=== PATIENT | female | born 1975 | race Caucasian/White ===

== ENCOUNTER 2017-03-23 17:02 | Emergency (ER) | payer OTHER ==
[2017-03-23 17:08] VITALS: BP 110/73; PULSE 75; TEMP 98.1; BMI 26.6
--- NOTE | 2017-03-23 17:10 | PDOC ---
Rapid Medical Evaluation Time Seen by Provider: 03/23/17 17:03 Medical Evaluation: Vital Signs Temp Pulse Resp BP Pulse Ox 98.1 F 75 18 110/73 96 03/23/17 17:04 03/23/17 17:04 03/23/17 17:04 03/23/17 17:04 03/23/17 17:04 03/23/17 17:07 I have performed a brief in-person evaluation of this patient. o The patient presents with a chief complaint of: Weakness, withdrawal from Methadone o Pertinent physical exam findings: Nervous, nauseas, Diaphoretic. Denies CP or SOB. o I have ordered the following:CBC, CMP, EKG, Urine tox, urinalysis, urine culture, urine . o The patient will proceed to the ED for further evaluation.
[2017-03-23 17:33] LABS: BASOPHIL 0.5 % (0-2.0); EOSINOPHIL 0.4 % (0-4.5); MCH 29.6 pg (25.7-33.7); MCHC 33.5 g/dl (32.0-36.0); MEAN CELL VOLUME 88.5 fl (80-96); MEAN PLT VOLUME 7.6 fl (7.5-11.1); NEUTROPHILS 73.5 % (42.8-82.8); PLATELET COUNT 333 K/MM3 (134-434); RDW 12.4 % (11.6-15.6); WHITE BLOOD COUNT 13.1 K/mm3 (4.0-10.0)
[2017-03-23 17:40] LABS: URINE APPEARANCE CLEAR; URINE BILIRUBIN NEGATIVE (NEGATIVE); URINE BLOOD NEGATIVE (NEGATIVE); URINE COLOR YELLOW; URINE GLUCOSE (UA) NEGATIVE (NEGATIVE); URINE KETONE TRACE (NEGATIVE); URINE LEUK ESTERASE NEGATIVE (NEGATIVE); URINE NITRITE NEGATIVE (NEGATIVE); URINE PROTEIN NEGATIVE (NEGATIVE); URINE UROBILINOGEN NEGATIVE E.U./dl (0.2-1.0)
[2017-03-23 17:58] LABS: URINE MARIJUANA THC NEGATIVE ng/ml (CUTOFF=50)
[2017-03-23] MEDS ORDERED: ONDANSETRON *ODT* 4 MG TABLET ONE (18:05)
[2017-03-23 18:07] LABS: ALBUMIN 4.4 g/dl (3.4-5.0); ALK PHOS 142 U/L (45-117); ANION GAP 11 (8-16); BILIRUBIN,TOTAL 0.7 mg/dL (0.2-1.0); CALCIUM 9.7 mg/dL (8.5-10.1); CO2 26 mmol/L (21-32); GLUCOSE,RANDOM 101 mg/dL (74-106); SGOT/AST 20 U/L (15-37); SGPT/ALT 19 U/L (12-78); TOT PROT 8.2 g/dl (6.4-8.2)
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
--- NOTE | 2017-03-25 16:38 | EKG ---
Test Reason : Blood Pressure : / mmHG Vent. Rate : 066 BPM Atrial Rate : 066 BPM P-R Int : 162 ms QRS Dur : 090 ms QT Int : 428 ms P-R-T Axes : 025 031 036 degrees QTc Int : 448 ms NORMAL SINUS RHYTHM NORMAL ECG WHEN COMPARED WITH ECG OF 31-JUL-1998 11:11, NONSPECIFIC T WAVE ABNORMALITY NOW EVIDENT IN INFERIOR LEADS Confirmed by ANH LAMA MD ([id number]) on 03/25/2017 4:37:58 PM Referred By: MIRA Confirmed By:ANH LAMA MD
== END 2017-03-23 18:45 | disposition home or self-care (01) ==
LOC: JER 17:02
DX: F11.20 Opioid dependence, uncomplicated (principal); F41.8 Other specified anxiety disorders; F43.10 Post-traumatic stress disorder, unspecified
CPT/HCPCS: 36415; 80053; 80307; 81003; 84703; 85025; 87086; 93005; 93010; 99281-25